=== PATIENT | male | born 1950 | race Caucasian/White ===

== ENCOUNTER 2020-09-16 23:31 | Inpatient (IN) ==
[2020-09-17] MEDS ORDERED: Ondansetron 4 MG/2 ML VIAL IVP PRN (03:13)
[2020-09-17] MEDS ORDERED: Acetaminophen 325 MG TABLET PO PRN (03:13)
[2020-09-17] MEDS ORDERED: Naloxone 0.4 MG/ML INJ IVP PRN (03:13)
[2020-09-17] MEDS: Pantoprazole 40 MG VIAL IVP SCH ×2 (04:16→17:40)
[2020-09-17] MEDS: Ringers Solution, Lactated 1,000 ML IVC SCH ×2 (04:16→17:40)
[2020-09-17 04:55] LABS: Basophils % 0.5 %; Eosinophils # 0.2 K/mcL (0.0-0.6); Eosinophils % 2.3 %; Hematocrit 25.2 % (37.5-50.1); Hemoglobin 8.5 g/dL (12.9-16.9); INR 1.2; Immature Granulocytes % 0.3 % (0-4); Lymphocytes % 26.7 %; Mean Corpuscular HGB Conc 33.7 g/dL (31.6-35.5); Mean Corpuscular Volume 100.8 fL (83.0-100.0); Mean Platelet Volume 10.1 fL (9.4-12.4); Monocytes # 0.6 K/mcL (0.0-1.3); Monocytes % 7.4 %; Neutrophils # 4.7 K/mcL (1.6-8.9); Platelet Count 195 K/mcL (140-400); Prothrombin Time 13.6 Seconds (9.4-12.1); Red Cell Distribution Width 11.7 % (11.5-14.5); Segmented Neutrophils % 62.8 %; White Blood Count 7.5 K/mcL (4.3-11.1)
[2020-09-17 05:12] LABS: BUN/Creatinine Ratio 49 (6-26); Blood Urea Nitrogen 28 mg/dL (8-23); Calcium 8.1 mg/dL (8.6-10.3); Carbon Dioxide 21 mEq/L (23-29); Chloride 113 mEq/L (98-107); Glucose 109 mg/dL (70-105); Osmolality,Calculated 294 (280-300); Potassium 3.5 mEq/L (3.5-5.1); Sodium 139 mEq/L (136-145); eGFR For African Americans > 60 (> 60); eGFR For Non-African Americans > 60 (> 60)
[2020-09-17] MEDS ORDERED: Dextrose Gel 15 GM/37.5 ML TUBE PO PRN ×2 (08:32)
[2020-09-17] MEDS ORDERED: *HR* Dextrose 50 % in Water (Vial) 50 ML VIAL IVP PRN (08:32)
[2020-09-17] MEDS ORDERED: D5% in Water 1,000 ML IVC PRN (08:32)
[2020-09-17] MEDS ORDERED: Metoclopramide 10 MG/2 ML VIAL IVP ONE (09:15)
[2020-09-17 09:27] LABS: Hematocrit 26.2 % (37.5-50.1); Hemoglobin 8.8 g/dL (12.9-16.9)
[2020-09-17 12:01] LABS: Adenovirus Not Detected (Not Detect); Bordetella Pertussis Not Detected (Not Detect); Chlamydophila pneumoniae Not Detected (Not Detect); Coronavirus 229E Not Detected (Not Detect); Coronavirus HKU1 Not Detected (Not Detect); Coronavirus NL63 Not Detected (Not Detect); Coronavirus OC43 Not Detected (Not Detect); Human Metapneumovirus Not Detected (Not Detect); Human Rhinovirus/Enterovirus Not Detected (Not Detect); Influenza A Subtype 2009 H1 Not Detected (Not Detect); Influenza B Not Detected (Not Detect); Mycoplasma pneumoniae Not Detected (Not Detect); Parainfluenza Virus 1 Not Detected (Not Detect); Parainfluenza Virus 2 Not Detected (Not Detect); Parainfluenza Virus 3 Not Detected (Not Detect); Parainfluenza Virus 4 Not Detected (Not Detect); Respiratory Syncytial Virus Not Detected (Not Detect); SARS-CoV-2 Not Detected (Not Detect)
[2020-09-17] MEDS ORDERED: Lidocaine -MPF 2% 2 ML VIAL ONE (13:11)
[2020-09-17] MEDS ORDERED: *HR* Propofol 200 MG/20 ML VIAL IVP ONE ×2 (13:11)
[2020-09-17] MEDS: Insulin LISPRO 300 UNITS/3 ML VIAL SUBQ SCH ×2 (14:54→20:42)
[2020-09-17 15:22] LABS: Hematocrit 23.2 % (37.5-50.1); Hemoglobin 7.7 g/dL (12.9-16.9)
[2020-09-17 21:10] LABS: Basophils # 0.1 K/mcL (0.0-0.2); Basophils % 0.5 %; Eosinophils # 0.1 K/mcL (0.0-0.6); Eosinophils % 0.8 %; Immature Granulocytes % 0.3 % (0-4); Lymphocytes # 2.6 K/mcL (0.6-4.6); Lymphocytes % 19.8 %; Mean Corpuscular HGB Conc 33.3 g/dL (31.6-35.5); Mean Corpuscular Hemoglobin 33.8 pg (28.0-33.3); Mean Corpuscular Volume 101.4 fL (83.0-100.0); Mean Platelet Volume 10.1 fL (9.4-12.4); Monocytes # 0.8 K/mcL (0.0-1.3); Monocytes % 6.4 %; Neutrophils # 9.4 K/mcL (1.6-8.9); Platelet Count 222 K/mcL (140-400); Red Blood Count 2.07 M/mcL (4.19-5.50); Red Cell Distribution Width 11.7 % (11.5-14.5); Segmented Neutrophils % 72.2 %
[2020-09-17] MEDS ORDERED: 0.9 % Sodium Chloride 250 ML ONE (22:10)
[2020-09-18] MEDS: Insulin LISPRO 300 UNITS/3 ML VIAL SUBQ SCH ×3 (00:30→12:11)
[2020-09-18 03:22] LABS: Magnesium 1.7 mg/dL (1.6-2.6); Phosphorous 2.9 mg/dL (2.7-4.5)
[2020-09-18 03:29] LABS: Basophils % 0.4 %; Eosinophils # 0.1 K/mcL (0.0-0.6); Eosinophils % 1.2 %; Hematocrit 19.3 % (37.5-50.1); Hemoglobin 6.6 g/dL (12.9-16.9); Immature Granulocytes % 0.3 % (0-4); Lymphocytes # 2.5 K/mcL (0.6-4.6); Lymphocytes % 27.2 %; Mean Corpuscular HGB Conc 34.2 g/dL (31.6-35.5); Mean Corpuscular Hemoglobin 32.4 pg (28.0-33.3); Mean Platelet Volume 10.3 fL (9.4-12.4); Monocytes # 0.7 K/mcL (0.0-1.3); Monocytes % 7.9 %; Neutrophils # 5.7 K/mcL (1.6-8.9); Platelet Count 165 K/mcL (140-400); Red Blood Count 2.04 M/mcL (4.19-5.50); Red Cell Distribution Width 13.9 % (11.5-14.5); White Blood Count 9.1 K/mcL (4.3-11.1)
[2020-09-18 03:39] LABS: Mean Corpuscular Volume 94.6 fL (83.0-100.0)
[2020-09-18] MEDS ORDERED: 0.9 % Sodium Chloride 250 ML ONE ×3 (05:12→22:31)
[2020-09-18] MEDS: Pantoprazole 40 MG VIAL IVP SCH ×2 (05:14→18:00)
[2020-09-18] MEDS ORDERED: Lidocaine -MPF 2% 2 ML VIAL ONE (13:25)
[2020-09-18 14:55] LABS: Hematocrit 18.4 % (37.5-50.1); Hemoglobin 6.2 g/dL (12.9-16.9)
[2020-09-18] MEDS ORDERED: Isovue-370 500 ML BOTTLE IVP ONE (18:53)
[2020-09-18 19:36] LABS: Hematocrit 16.7 % (37.5-50.1)
[2020-09-18 19:48] LABS: Hemoglobin 5.5 g/dL (12.9-16.9)
[2020-09-19] MEDS ORDERED: 0.9 % Sodium Chloride 500 ML IVC ONE (03:06)
[2020-09-19] MEDS: Insulin LISPRO 300 UNITS/3 ML VIAL SUBQ SCH ×5 (03:28→21:01)
[2020-09-19 04:15] LABS: Basophils % 0.5 %; Eosinophils # 0.2 K/mcL (0.0-0.6); Eosinophils % 2.3 %; Hematocrit 17.3 % (37.5-50.1); Immature Granulocytes % 0.5 % (0-4); Lymphocytes # 2.4 K/mcL (0.6-4.6); Lymphocytes % 27.9 %; Mean Corpuscular HGB Conc 34.7 g/dL (31.6-35.5); Mean Corpuscular Hemoglobin 32.1 pg (28.0-33.3); Mean Corpuscular Volume 92.5 fL (83.0-100.0); Mean Platelet Volume 10.5 fL (9.4-12.4); Monocytes # 0.9 K/mcL (0.0-1.3); Monocytes % 10.9 %; Platelet Count 108 K/mcL (140-400); Red Blood Count 1.87 M/mcL (4.19-5.50); Red Cell Distribution Width 14.1 % (11.5-14.5); Segmented Neutrophils % 57.9 %; White Blood Count 8.6 K/mcL (4.3-11.1)
[2020-09-19 04:31] LABS: BUN/Creatinine Ratio 29 (6-26); Blood Urea Nitrogen 18 mg/dL (8-23); Calcium 7.1 mg/dL (8.6-10.3); Carbon Dioxide 20 mEq/L (23-29); Chloride 112 mEq/L (98-107); Chol/HDL Ratio 4.8 (0-4.9); Cholesterol 77 mg/dL (< 200); Glucose 109 mg/dL (70-105); HDL Cholesterol 16 mg/dL (40-59); LDL Cholesterol,Calculated 43 mg/dL (< 100); Magnesium 1.6 mg/dL (1.6-2.6); Osmolality,Calculated 286 (280-300); Potassium 3.1 mEq/L (3.5-5.1); Sodium 137 mEq/L (136-145); Triglycerides 90 mg/dL (< 150); eGFR For African Americans > 60 (> 60); eGFR For Non-African Americans > 60 (> 60)
[2020-09-19] MEDS ORDERED: 0.9 % Sodium Chloride 250 ML ONE ×3 (04:42→23:14)
[2020-09-19] MEDS: Pantoprazole 40 MG VIAL IVP SCH ×2 (04:59→18:19)
[2020-09-19] MEDS ORDERED: 0.9 % Sodium Chloride 250 ML IVC SCH (07:00)
[2020-09-19] MEDS ORDERED: Potassium Chloride 40 MEQ, Lidocaine 1% 2 ML in 0.9 % Sodium Chloride 500 ML IVPB ONE (07:36)
[2020-09-19] MEDS ORDERED: Furosemide 40 MG/4 ML VIAL IVP ONE (10:27)
[2020-09-20] MEDS: Pantoprazole 40 MG VIAL IVP SCH ×2 (05:54→18:20)
[2020-09-20 06:39] LABS: Basophils % 0.5 %; Eosinophils # 0.3 K/mcL (0.0-0.6); Eosinophils % 4.5 %; Hematocrit 22.4 % (37.5-50.1); Hemoglobin 7.5 g/dL (12.9-16.9); Immature Granulocytes % 0.7 % (0-4); Lymphocytes # 1.5 K/mcL (0.6-4.6); Lymphocytes % 20.1 %; Mean Corpuscular HGB Conc 33.5 g/dL (31.6-35.5); Mean Corpuscular Volume 92.6 fL (83.0-100.0); Mean Platelet Volume 9.9 fL (9.4-12.4); Monocytes # 0.5 K/mcL (0.0-1.3); Monocytes % 7.3 %; Neutrophils # 4.9 K/mcL (1.6-8.9); Platelet Count 154 K/mcL (140-400); Red Blood Count 2.42 M/mcL (4.19-5.50); Red Cell Distribution Width 15.5 % (11.5-14.5); Segmented Neutrophils % 66.9 %; White Blood Count 7.4 K/mcL (4.3-11.1)
[2020-09-20 07:00] LABS: Alanine Aminotransferase 12 Units/L (7-52); Albumin 3.2 g/dL (3.5-5.7); Albumin/Globulin Ratio 1.7 (1.1-2.2); Alkaline Phosphatase 36 Units/L (34-104); Aspartate Amino Transferase 20 Units/L (13-39); BUN/Creatinine Ratio 23 (6-26); Bilirubin,Indirect 0.6 mg/dL (0.0-1.0); Bilirubin,Total 0.6 mg/dL (0.3-1.0); Blood Urea Nitrogen 15 mg/dL (8-23); Calcium 7.7 mg/dL (8.6-10.3); Carbon Dioxide 26 mEq/L (23-29); Chloride 110 mEq/L (98-107); Chol/HDL Ratio 4.2 (0-4.9); Cholesterol 106 mg/dL (< 200); Globulin 1.9 g/dL (2.4-3.5); Glucose 108 mg/dL (70-105); HDL Cholesterol 25 mg/dL (40-59); LDL Cholesterol,Calculated 60 mg/dL (< 100); Magnesium 2.2 mg/dL (1.6-2.6); Osmolality,Calculated 291 (280-300); Potassium 3.1 mEq/L (3.5-5.1); Sodium 140 mEq/L (136-145); Total Protein 5.1 g/dL (6.4-8.9); Triglycerides 107 mg/dL (< 150); eGFR For African Americans > 60 (> 60); eGFR For Non-African Americans > 60 (> 60)
[2020-09-20] MEDS ORDERED: *HR* Midazolam HCl 2 MG/2 ML VIAL ONE (07:10)
[2020-09-20] MEDS ORDERED: *HR* FentaNYL (PF) 100 MCG/2 ML VIAL ONE (07:10)
[2020-09-20] MEDS ORDERED: CefOXitin 1,000 MG VIAL ONE (07:11)
[2020-09-20] MEDS ORDERED: *HR* Propofol 200 MG/20 ML VIAL IVP ONE (07:11)
[2020-09-20] MEDS ORDERED: Lidocaine -MPF 2% 2 ML VIAL ONE (07:14)
[2020-09-20] MEDS ORDERED: *HR* Succinylcholine 200 MG/10 ML VIAL IVP ONE (07:14)
[2020-09-20] MEDS ORDERED: *HR* Rocuronium Bromide 50 MG/5 ML VIAL ONE (07:14)
[2020-09-20] MEDS ORDERED: EPHEDrine 50 MG/ML VIAL ONE (07:16)
[2020-09-20] MEDS ORDERED: Famotidine 20 MG/2 ML VIAL ONE (07:34)
[2020-09-20] MEDS ORDERED: Acetaminophen IV 1,000 MG/100 ML BAG IVPB ONE (07:34)
[2020-09-20] MEDS ORDERED: Potassium Chloride 40 MEQ, Lidocaine 1% 2 ML in 0.9 % Sodium Chloride 500 ML IVPB ONE ×2 (07:48→10:57)
[2020-09-20] MEDS: Insulin LISPRO 300 UNITS/3 ML VIAL SUBQ SCH ×4 (07:50→20:52)
[2020-09-20] MEDS ORDERED: *HR* HYDROmorphone PF 0.5 MG/0.5 ML SYRINGE IVP PRN ×2 (07:54→10:57)
[2020-09-20] MEDS ORDERED: Ondansetron 4 MG/2 ML VIAL IVP PRN ×3 (07:54→10:57)
[2020-09-20] MEDS ORDERED: CefOXitin 2,000 MG VIAL ONE (08:07)
[2020-09-20] MEDS ORDERED: *HR* HYDROMORPHONE 2 MG/ML VIAL ONE (08:36)
[2020-09-20] MEDS ORDERED: Sugammadex Sodium 200 MG/2 ML VIAL IV ONE (08:39)
[2020-09-20] MEDS ORDERED: polyethylene glycoL 3350 17 GM POWD.PACK PO SCH (09:00)
[2020-09-20] MEDS ORDERED: Cholecalciferol (D-3) 1,000 UNIT (25MCG) TABLET PO SCH (09:00)
[2020-09-20] MEDS ORDERED: Morphine Sulfate 2 MG/ML SYRINGE IVP PRN (09:55)
[2020-09-20] MEDS ORDERED: 0.9 % Sodium Chloride 250 ML IVC SCH (10:57)
[2020-09-20] MEDS ORDERED: D5% in Water 1,000 ML IVC PRN (10:57)
[2020-09-20] MEDS ORDERED: Dextrose Gel 15 GM/37.5 ML TUBE PO PRN ×2 (10:57)
[2020-09-20] MEDS ORDERED: *HR* Dextrose 50 % in Water (Vial) 50 ML VIAL IVP PRN (10:57)
[2020-09-20] MEDS ORDERED: Naloxone 0.4 MG/ML INJ IVP PRN (10:57)
[2020-09-20] MEDS ORDERED: 0.9 % Sodium Chloride 250 ML ONE (13:28)
[2020-09-20] MEDS: *HR* HYDROmorphone 2 MG/ML SYRINGE IVP PRN (16:34)
[2020-09-20] MEDS: Acetaminophen 325 MG TABLET PO PRN (20:52)
[2020-09-21] MEDS: *HR* HYDROmorphone 2 MG/ML SYRINGE IVP PRN ×3 (01:54→12:20)
[2020-09-21 03:21] LABS: BUN/Creatinine Ratio 24 (6-26); Blood Urea Nitrogen 16 mg/dL (8-23); Calcium 7.8 mg/dL (8.6-10.3); Carbon Dioxide 25 mEq/L (23-29); Chloride 107 mEq/L (98-107); Glucose 189 mg/dL (70-105); Magnesium 2.3 mg/dL (1.6-2.6); Osmolality,Calculated 292 (280-300); Potassium 3.5 mEq/L (3.5-5.1); Sodium 138 mEq/L (136-145); eGFR For African Americans > 60 (> 60); eGFR For Non-African Americans > 60 (> 60)
[2020-09-21 03:25] LABS: Basophils % 0.1 %; Hematocrit 21.8 % (37.5-50.1); Hemoglobin 7.4 g/dL (12.9-16.9); Immature Granulocytes % 0.5 % (0-4); Lymphocytes # 0.6 K/mcL (0.6-4.6); Lymphocytes % 3.4 %; Mean Corpuscular HGB Conc 33.9 g/dL (31.6-35.5); Mean Corpuscular Volume 94.4 fL (83.0-100.0); Mean Platelet Volume 10.3 fL (9.4-12.4); Monocytes # 0.8 K/mcL (0.0-1.3); Monocytes % 4.3 %; Neutrophils # 16.7 K/mcL (1.6-8.9); Platelet Count 175 K/mcL (140-400); Red Blood Count 2.31 M/mcL (4.19-5.50); Red Cell Distribution Width 15.9 % (11.5-14.5); Segmented Neutrophils % 91.7 %
[2020-09-21 03:26] LABS: White Blood Count 18.2 K/mcL (4.3-11.1)
[2020-09-21] MEDS: Acetaminophen 325 MG TABLET PO PRN ×2 (05:13→16:25)
[2020-09-21] MEDS: Pantoprazole 40 MG VIAL IVP SCH ×2 (05:14→18:34)
[2020-09-21] MEDS: Cefepime HCl 1,000 MG in 0.9 % Sodium Chloride Mini Bag 100 ML IVPB SCH ×2 (08:20→15:48)
[2020-09-21] MEDS: MetroNIDAZOLE 500 MG/100 ML 500 MG/100 ML BAG IVPB SCH ×2 (08:21→15:49)
[2020-09-21] MEDS: polyethylene glycoL 3350 17 GM POWD.PACK PO SCH (08:21)
[2020-09-21] MEDS: Cholecalciferol (D-3) 1,000 UNIT (25MCG) TABLET PO SCH (08:21)
[2020-09-21 08:28] LABS: Albumin 3.4 g/dL (3.5-5.7); Albumin/Globulin Ratio 1.6 (1.1-2.2); Bilirubin,Direct 0.1 mg/dL (0.0-0.2); Bilirubin,Indirect 0.6 mg/dL (0.0-1.0); Bilirubin,Total 0.7 mg/dL (0.3-1.0); Globulin 2.1 g/dL (2.4-3.5); Total Protein 5.5 g/dL (6.4-8.9)
[2020-09-21] MEDS: Insulin LISPRO 300 UNITS/3 ML VIAL SUBQ SCH ×4 (08:30→21:11)
[2020-09-21] MEDS: *HR* OxyCODONE Immed Rel 5 MG TABLET PO PRN (21:30)
[2020-09-22] MEDS: MetroNIDAZOLE 500 MG/100 ML 500 MG/100 ML BAG IVPB SCH ×2 (00:38→08:11)
[2020-09-22] MEDS: Acetaminophen 325 MG TABLET PO PRN (00:38)
[2020-09-22] MEDS: Cefepime HCl 1,000 MG in 0.9 % Sodium Chloride Mini Bag 100 ML IVPB SCH ×2 (00:38→08:09)
[2020-09-22] MEDS: *HR* OxyCODONE Immed Rel 5 MG TABLET PO PRN ×2 (01:56→06:11)
[2020-09-22 02:43] LABS: Basophils % 0.1 %; Hematocrit 22.4 % (37.5-50.1); Hemoglobin 7.5 g/dL (12.9-16.9); Immature Granulocytes % 0.7 % (0-4); Lymphocytes % 5.4 %; Mean Corpuscular HGB Conc 33.5 g/dL (31.6-35.5); Mean Corpuscular Hemoglobin 31.6 pg (28.0-33.3); Mean Corpuscular Volume 94.5 fL (83.0-100.0); Monocytes # 1.1 K/mcL (0.0-1.3); Monocytes % 6.4 %; Neutrophils # 15.5 K/mcL (1.6-8.9); Platelet Count 225 K/mcL (140-400); Red Blood Count 2.37 M/mcL (4.19-5.50); Red Cell Distribution Width 17.2 % (11.5-14.5); Segmented Neutrophils % 87.4 %; White Blood Count 17.7 K/mcL (4.3-11.1)
[2020-09-22 03:05] LABS: BUN/Creatinine Ratio 34 (6-26); Blood Urea Nitrogen 21 mg/dL (8-23); Carbon Dioxide 25 mEq/L (23-29); Chloride 108 mEq/L (98-107); Glucose 144 mg/dL (70-105); Magnesium 2.3 mg/dL (1.6-2.6); Osmolality,Calculated 292 (280-300); Potassium 3.4 mEq/L (3.5-5.1); Sodium 138 mEq/L (136-145); eGFR For African Americans > 60 (> 60); eGFR For Non-African Americans > 60 (> 60)
[2020-09-22] MEDS: Pantoprazole 40 MG VIAL IVP SCH (05:28)
[2020-09-22] MEDS: Insulin LISPRO 300 UNITS/3 ML VIAL SUBQ SCH ×2 (08:06→11:56)
[2020-09-22] MEDS: Cholecalciferol (D-3) 1,000 UNIT (25MCG) TABLET PO SCH (08:08)
[2020-09-22] MEDS: polyethylene glycoL 3350 17 GM POWD.PACK PO SCH (08:10)
[2020-09-22 10:58] VITALS: BP 148/68
== END 2020-09-22 13:40 | disposition home or self-care (01) | DRG 330 ==
LOC: 3ANU → SUATTDRO 09-17 02:06
PROVIDERS: ADMIT Family Medicine; ATTEND Pharmacist

== ENCOUNTER 2020-09-24 23:14 | Observation (INO) ==
[2020-09-25] MEDS ORDERED: Isovue-370 500 ML BOTTLE IVP ONE (00:06)
[2020-09-25 01:11] LABS: Basophils % 0.2 %; Eosinophils # 0.5 K/mcL (0.0-0.6); Eosinophils % 4.2 %; Hematocrit 29.3 % (37.5-50.1); Immature Granulocytes % 0.5 % (0-4); Lymphocytes # 1.4 K/mcL (0.6-4.6); Lymphocytes % 12.5 %; Mean Corpuscular HGB Conc 32.4 g/dL (31.6-35.5); Mean Corpuscular Hemoglobin 31.6 pg (28.0-33.3); Mean Corpuscular Volume 97.3 fL (83.0-100.0); Mean Platelet Volume 9.2 fL (9.4-12.4); Monocytes # 0.8 K/mcL (0.0-1.3); Neutrophils # 8.3 K/mcL (1.6-8.9); Platelet Count 393 K/mcL (140-400); Red Blood Count 3.01 M/mcL (4.19-5.50); Red Cell Distribution Width 16.4 % (11.5-14.5); Segmented Neutrophils % 75.6 %
[2020-09-25 01:13] LABS: Hemoglobin 9.5 g/dL (12.9-16.9)
[2020-09-25 01:22] LABS: INR 1.1; Prothrombin Time 12.9 Seconds (9.4-12.1)
[2020-09-25 02:07] LABS: Alanine Aminotransferase 17 Units/L (7-52); Albumin 3.3 g/dL (3.5-5.7); Albumin/Globulin Ratio 1.2 (1.1-2.2); Alkaline Phosphatase 34 Units/L (34-104); Aspartate Amino Transferase 16 Units/L (13-39); BUN/Creatinine Ratio 24 (6-26); Bilirubin,Direct 0.1 mg/dL (0.0-0.2); Bilirubin,Indirect 0.4 mg/dL (0.0-1.0); Bilirubin,Total 0.5 mg/dL (0.3-1.0); Blood Urea Nitrogen 15 mg/dL (8-23); Calcium 8.7 mg/dL (8.6-10.3); Carbon Dioxide 27 mEq/L (23-29); Chloride 101 mEq/L (98-107); Globulin 2.8 g/dL (2.4-3.5); Glucose 141 mg/dL (70-105); Osmolality,Calculated 289 (280-300); Potassium 3.5 mEq/L (3.5-5.1); Sodium 138 mEq/L (136-145); Total Protein 6.1 g/dL (6.4-8.9); eGFR For African Americans > 60 (> 60); eGFR For Non-African Americans > 60 (> 60)
[2020-09-25] MEDS ORDERED: Isovue-370 500 ML BOTTLE PO ONE (03:27)
[2020-09-25] MEDS ORDERED: 0.9 % Sodium Chloride 1,000 ML IVC ONE (06:31)
[2020-09-25] MEDS ORDERED: Naloxone 0.4 MG/ML INJ IVP PRN (07:33)
[2020-09-25] MEDS ORDERED: Ondansetron 4 MG/2 ML VIAL IVP PRN (07:33)
[2020-09-25] MEDS ORDERED: Potassium Chloride Elixir 20 MEQ/15 ML UDC PO ONE (07:53)
[2020-09-25] MEDS ORDERED: Magnesium Oxide 400 MG TABLET PO ONE (07:54)
[2020-09-25] MEDS ORDERED: Ipratropium/Albuterol Neb 3 ML IH PRN (08:06)
[2020-09-25 09:17] LABS: Bacteria,Urine Few per hpf (None-Few); Bilirubin,Urine Negative (Negative); Blood,Urine Negative (Negative); Clarity,Urine Clear (Clear); Color,Urine Yellow (Yellow); Glucose,Urine (UA) 30 mg/dL (Normal); Ketones,Urine Negative (Negative); Leukocyte Esterase,Urine Negative (Negative); Mucus,Urine Many per lpf (None-Few); Nitrite,Urine Negative (Negative); PH,Urine 5.5 pH Units (5.0-8.0); Protein,Urine 70 mg/dL (Neg-Trace); RBC,Urine 0-3 per hpf (0-3); Specific Gravity,Urine > 1.030 (1.010-1.025); Urobilinogen,Urine Normal (Normal)
[2020-09-25] MEDS: Ampicillin/Sulbactam 1,500 MG in 0.9 % Sodium Chloride Mini Bag 100 ML IVPB SCH ×3 (12:12→23:57)
[2020-09-25] MEDS: Ringers Solution, Lactated 1,000 ML IVC SCH (12:12)
[2020-09-25] MEDS: *HR* Heparin 5,000 UNIT/ML VIAL SQ SCH (18:40)
[2020-09-26] MEDS: Ringers Solution, Lactated 1,000 ML IVC SCH (03:13)
[2020-09-26] MEDS: *HR* Heparin 5,000 UNIT/ML VIAL SQ SCH ×2 (05:11→17:08)
[2020-09-26] MEDS: Ampicillin/Sulbactam 1,500 MG in 0.9 % Sodium Chloride Mini Bag 100 ML IVPB SCH ×3 (05:12→17:10)
[2020-09-26 05:14] LABS: Hematocrit 25.7 % (37.5-50.1); Hemoglobin 8.1 g/dL (12.9-16.9); Mean Corpuscular HGB Conc 31.5 g/dL (31.6-35.5); Mean Corpuscular Hemoglobin 30.7 pg (28.0-33.3); Mean Corpuscular Volume 97.3 fL (83.0-100.0); Mean Platelet Volume 9.2 fL (9.4-12.4); Platelet Count 350 K/mcL (140-400); Red Blood Count 2.64 M/mcL (4.19-5.50); Red Cell Distribution Width 16.2 % (11.5-14.5); White Blood Count 8.6 K/mcL (4.3-11.1)
[2020-09-26 05:33] LABS: BUN/Creatinine Ratio 26 (6-26); Blood Urea Nitrogen 14 mg/dL (8-23); Calcium 7.6 mg/dL (8.6-10.3); Carbon Dioxide 26 mEq/L (23-29); Chloride 104 mEq/L (98-107); Glucose 96 mg/dL (70-105); Osmolality,Calculated 284 (280-300); Potassium 3.7 mEq/L (3.5-5.1); Sodium 137 mEq/L (136-145); eGFR For African Americans > 60 (> 60); eGFR For Non-African Americans > 60 (> 60)
[2020-09-26] MEDS ORDERED: Melatonin 3 MG TABLET PO PRN (22:34)
[2020-09-27] MEDS: Ampicillin/Sulbactam 1,500 MG in 0.9 % Sodium Chloride Mini Bag 100 ML IVPB SCH ×2 (00:12→05:30)
[2020-09-27 04:00] LABS: Hematocrit 25.6 % (37.5-50.1); Mean Corpuscular HGB Conc 31.3 g/dL (31.6-35.5); Mean Corpuscular Hemoglobin 30.5 pg (28.0-33.3); Mean Corpuscular Volume 97.7 fL (83.0-100.0); Mean Platelet Volume 9.3 fL (9.4-12.4); Platelet Count 352 K/mcL (140-400); Red Blood Count 2.62 M/mcL (4.19-5.50); Red Cell Distribution Width 15.9 % (11.5-14.5)
[2020-09-27 04:20] LABS: BUN/Creatinine Ratio 27 (6-26); Blood Urea Nitrogen 15 mg/dL (8-23); Calcium 7.7 mg/dL (8.6-10.3); Carbon Dioxide 25 mEq/L (23-29); Chloride 106 mEq/L (98-107); Glucose 105 mg/dL (70-105); Osmolality,Calculated 287 (280-300); Potassium 3.7 mEq/L (3.5-5.1); Sodium 138 mEq/L (136-145); eGFR For African Americans > 60 (> 60); eGFR For Non-African Americans > 60 (> 60)
[2020-09-27 04:22] LABS: Magnesium 2.1 mg/dL (1.6-2.6); Phosphorous 3.1 mg/dL (2.7-4.5)
[2020-09-27 04:42] LABS: Folate 15.6 ng/mL (3.0-16.0)
[2020-09-27] MEDS: *HR* Heparin 5,000 UNIT/ML VIAL SQ SCH (05:35)
[2020-09-27 06:35] VITALS: BP 132/76
== END 2020-09-27 19:10 | disposition home or self-care (01) ==
LOC: 3ANU 23:14 → EMEROOARM 23:14 → SUATTDRO 09-25 10:23 → 3ANU 09-25 11:25
PROVIDERS: ADMIT Internal Medicine; ATTEND Internal Medicine